=== PATIENT | male | born 1970 | race Caucasian/White ===

== ENCOUNTER 2019-10-08 02:50 | Emergency (ER) | payer BC ==
[2019-10-08] MEDS ORDERED: Sodium Chloride 0.9% 10 ML Syringe FLUSH PRN (03:11)
[2019-10-08] MEDS: Ketorolac 30 MG/ML SDV IVPUSH PRN (03:17)
[2019-10-08] MEDS: Ondansetron 4 MG/2 ML SDV IVPUSH PRN (03:45)
[2019-10-08] MEDS ORDERED: fentaNYL 100 MCG/2 ML SDV IVPUSH PRN (03:45)
[2019-10-08] MEDS: fentaNYL 250 MCG/5 ML SDV IVPUSH ONE ×2 (03:45→05:19)
--- NOTE | 2019-10-08 03:53 | EDM.PDOC ---
ED HPI GENERAL MEDICAL PROBLEM - General Chief Complaint: Abdominal Pain Stated Complaint: abd pain Time Seen by Provider: 10/08/19 03:15 Source of Information: Reports: Patient History Limitations: Reports: No Limitations - History of Present Illness INITIAL COMMENTS - FREE TEXT/NARRATIVE: this patient presents to the ED for evaluation of abdominal pain. He states the pain began about 6 hours ago while he was playing cards. He states the pain started out in the middle of his abdomen and has increased in intensity and now mid-abdomen and RLQ. He rates his pain "15/10" and presents doubled over. He denies vomiting or diarrhea but states he has no nausea. Denies fever. This patient has a history of hypertension and "takes 2 pills" but is unsure as to what they are. Onset: Today, Gradual Onset Date: 10/07/19 Onset Time: 18:00 Duration: Getting Worse Location: Reports: Abdomen - Related Data Allergies Allergy/AdvReac Type Severity Reaction Status Date / Time No Known Allergies Allergy Verified 10/08/19 03:23 ED ROS GENERAL - Review of Systems Review Of Systems: See Below Constitutional: Denies: Fever, Weakness HEENT: Reports: No Symptoms Respiratory: Reports: No Symptoms Cardiovascular: Reports: No Symptoms GI/Abdominal: Reports: Abdominal Pain. Denies: Anorexia, Diarrhea, Decreased Appetite, Distension, Nausea, Vomiting : Reports: No Symptoms Musculoskeletal: Reports: No Symptoms Skin: Reports: No Symptoms ED EXAM, GI/ABD - Physical Exam Exam: See Below Exam Limited By: Other (writhing in pain; accurate abdominal exam challenging) General Appearance: Alert, Severe Distress Eyes: Bilateral: Normal Appearance Ears: Normal External Exam Nose: Normal Inspection Throat/Mouth: Normal Inspection Head: Atraumatic, Normocephalic Neck: Normal Inspection, Supple, Full Range of Motion Respiratory/Chest: No Respiratory Distress, Lungs Clear, Normal Breath Sounds, No Accessory Muscle Use Cardiovascular: Regular Rate, Rhythm GI/Abdominal Exam: Normal Bowel Sounds. No: Soft, Non-Tender, No Organomegaly, No Distention Back Exam: Normal Inspection, Full Range of Motion. No: CVA Tenderness (R) Extremities: Normal Inspection, Normal Range of Motion Neurological: Alert, Oriented Skin Exam: Warm, Dry, Intact Course - Vital Signs Last Recorded V/S: Last Vital Signs Temp 36.8 C 10/08/19 02:55 Pulse 71 10/08/19 04:20 Resp 18 10/08/19 04:20 BP 167/105 H 10/08/19 04:20 Pulse Ox 100 10/08/19 04:20 - Orders/Labs/Meds Orders: Active Orders 24 hr Category Date Time Status Abdomen Pelvis w Cont [CT] Stat Exams 10/08/19 03:10 Taken Ketorolac [Toradol] Med 10/08/19 03:11 Active 30 mg IVPUSH Q6H PRN Ondansetron [Zofran] Med 10/08/19 03:45 Active 4 mg IVPUSH Q4H PRN Sodium Chloride 0.9% [Saline Flush] Med 10/08/19 03:11 Active 10 ml FLUSH ASDIRECTED PRN fentaNYL [Sublimaze] Med 10/08/19 03:45 Ordered 50 mcg IVPUSH Q5M PRN Saline Lock Insert [OM.PC] Routine Oth 10/08/19 03:11 Ordered Medication Orders Fentanyl (Sublimaze) 50 mcg IVPUSH Q5M PRN PRN Reason: Pain Ketorolac Tromethamine (Toradol) 30 mg IVPUSH Q6H PRN PRN Reason: Pain Stop: 10/13/19 03:11 Last Admin: 10/08/19 03:17 Dose: 30 mg Ondansetron HCl (Zofran) 4 mg IVPUSH Q4H PRN PRN Reason: Nausea/Vomiting Sodium Chloride (Saline Flush) 10 ml FLUSH ASDIRECTED PRN PRN Reason: Keep Vein Open Labs: Laboratory Tests 10/08/19 10/08/19 10/08/19 Range/Units 03:10 03:10 03:12 WBC 18.0 H (4.0-11.0) K/uL RBC 5.20 (4.50-6.50) M/uL Hgb 15.6 (13.0-18.0) g/dL Hct 45.2 (40.0-54.0) % MCV 87 (76-96) fL MCH 30.0 (27.0-32.0) pg MCHC 34.5 (31.0-35.0) g/dL RDW 13.2 (11.0-16.0) % Plt Count 370 (150-400) K/uL MPV 9.8 (6.0-10.0) fL Neut % (Auto) 81.6 H (45.0-70.0) % Lymph % (Auto) 12.1 L (20.0-40.0) % [place] % (Auto) 5.2 (3.0-10.0) % Eos % (Auto) 0.7 L (1.0-5.0) % Baso % (Auto) 0.4 (0.0-0.5) % Neut # (Auto) 14.66 H (2.00-7.50) K/uL Lymph # (Auto) 2.18 (1.50-4.00) K/uL [place] # (Auto) 0.93 H (0.20-0.80) K/uL Eos # (Auto) 0.12 (0.04-0.40) K/uL Baso # (Auto) 0.07 (0.02-0.10) K/uL Sodium 137 (136-145) mmol/L Potassium 4.0 (3.5-5.1) mmol/L Chloride 100 (98-107) mmol/L Carbon Dioxide 25.1 (21.0-32.0) mmol/L Anion Gap 15.9 H (5.0-15.0) mmol/L BUN 13 (8-26) mg/dL Creatinine 1.08 (0.70-1.30) mg/dL Est Cr Clr Drug Dosing 92.81 mL/min Estimated GFR (MDRD) > 60 (>60) MLS/MIN BUN/Creatinine Ratio 12.0 (6-25) Glucose 137 H (74-100) mg/dL Calcium 10.8 H (8.5-10.1) mg/dL Total Bilirubin 1.5 H (0.0-1.0) mg/dL AST 21 (15-37) U/L ALT 32 (12-78) U/L Alkaline Phosphatase 72 (46-116) U/L Total Protein 8.1 (6.4-8.2) g/dL Albumin 4.3 (3.4-5.0) g/dL Globulin 3.8 (2.2-4.2) g/dL Albumin/Globulin Ratio 1.1 (0.8-2.0) Urine Color Yellow Urine Appearance Clear (CLEAR) Urine pH 5.5 (5.0-8.0) Ur Specific [place] 1.025 (1.003-1.030) Urine Protein 30 H (NEGATIVE) mg/dL Urine Glucose (UA) Negative (NEGATIVE) mg/dL Urine Ketones Negative (NEGATIVE) mg/dL Urine Occult Blood Trace-lysed H (NEGATIVE) Urine Nitrite Negative (NEGATIVE) Urine Bilirubin Negative (NEGATIVE) Urine Urobilinogen 0.2 (0.2-1.0) E.U./dL Ur Leukocyte Esterase Negative (NEGATIVE) Urine RBC 0-5 H /HPF Urine WBC 0-5 H /HPF Ur Squamous Epith Cells Few /HPF Meds: Medications Generic Name Dose Route Start Last Admin Trade Name Freq PRN Reason Stop Dose Admin Fentanyl 50 mcg 10/08/19 03:45 Sublimaze IVPUSH Q5M PRN Pain Ketorolac Tromethamine 30 mg 10/08/19 03:11 10/08/19 03:17 Toradol IVPUSH 10/13/19 03:11 30 mg Q6H PRN Administration Pain Ondansetron HCl 4 mg 10/08/19 03:45 Zofran IVPUSH Q4H PRN Nausea/Vomiting Sodium Chloride 10 ml 10/08/19 03:11 Saline Flush FLUSH ASDIRECTED PRN Keep Vein Open - Re-Assessments/Exams Free Text/Narrative Re-Assessment/Exam: 10/08/19 04:29 This patient presents with abdominal pain and CT scan confirms appendicitis. There is no evidence of rupture or abscess at this time. Pain has been controlled with the above interventions in the ED. The case was discussed with Dr. Rosario who has accepted the patient in transfer. Parenteral antibiotics have been ordered and given and the patient was hemodynamically stable at the time of transfer. Questions were answered. Arrangements were made for S ground transfer to [facility]. The patient was stable at the time of transfer. 10/08/19 04:51 Departure - Departure Time of Disposition: 05:15 Disposition: 20 Condition: Fair Clinical Impression: Acute appendicitis - Discharge Information *PRESCRIPTION DRUG MONITORING PROGRAM REVIEWED*: No Instructions: Appendicitis, Adult Referrals: PCP,None [Primary Care Provider] - Forms: ED Department Discharge, ED Return to Work/School Form Sepsis Event Note - Evaluation Sepsis Screening Result: No Definite Risk - Focused Exam Vital Signs: Vital Signs Temp Pulse Resp BP Pulse Ox 10/08/19 04:20 71 18 167/105 H 100 10/08/19 02:55 36.8 C 98 18 198/131 H 100 Date Exam was Performed: 10/08/19 Time Exam was Performed: 04:28 - My Orders Last 24 Hours: My Active Orders 10/08/19 03:10 Abdomen Pelvis w Cont [CT] Stat 10/08/19 03:11 Ketorolac [Toradol] 30 mg IVPUSH Q6H PRN Sodium Chloride 0.9% [Saline Flush] 10 ml FLUSH ASDIRECTED PRN Saline Lock Insert [OM.PC] Routine 10/08/19 03:45 Ondansetron [Zofran] 4 mg IVPUSH Q4H PRN fentaNYL [Sublimaze] 50 mcg IVPUSH Q5M PRN - Assessment/Plan Last 24 Hours: My Active Orders 10/08/19 03:10 Abdomen Pelvis w Cont [CT] Stat 10/08/19 03:11 Ketorolac [Toradol] 30 mg IVPUSH Q6H PRN Sodium Chloride 0.9% [Saline Flush] 10 ml FLUSH ASDIRECTED PRN Saline Lock Insert [OM.PC] Routine 10/08/19 03:45 Ondansetron [Zofran] 4 mg IVPUSH Q4H PRN fentaNYL [Sublimaze] 50 mcg IVPUSH Q5M PRN
[2019-10-08] MEDS: Sodium Chloride 0.9% 1,000 ML IV SCH (04:45)
[2019-10-08] MEDS: Piperacillin/Tazobactam 4.5 GM in Sodium Chloride 0.9% 100 ML IV ONE (04:56)
--- NOTE | 2019-10-09 13:46 | CT ---
DATE OF SERVICE: 10/08/19 CLINICAL DATA: abdominal pain ENHANCED ABDOMEN AND PELVIC CT: Multislice acquisition through the abdomen and pelvis with IV, but without oral contrast was performed. No priors. The lung bases are clear. There is a small hiatal hernia. There is mild diffuse fatty infiltration of the liver. No focal hepatic lesions. No gallbladder appears normal. No gallstones. No pericholecystic fluid. The spleen appears normal size. There are multiple calcifications within the spleen consistent with prior granulomatous disease. The pancreas appears normal. The right and left adrenals appear normal. The right and left kidneys enhance symmetrically. No hydronephrosis or hydroureter. There is a small amount of fluid within the bladder. It appears normal. The prostate is mildly enlarged. The appendix is abnormal. It is dilated and measures 15 mm in outside diameter. There is also periappendiceal fat stranding. The findings are consistent with appendicitis. No evidence of periappendiceal abscess. No free air. No free fluid. No dilated loops of bowel. No adenopathy. No aortic aneurysm. There is an umbilical hernia containing fat. There are small bilateral inguinal hernias containing fat. IMPRESSION: 1. Findings consistent with appendicitis. 2. The patient's physician was notified of the findings by telephone and by virtual radiologic preliminary radiology report. [id number] [facility]
== END 2019-10-08 05:31 ==
LOC: LB.ED 02:50
DX: K35.80 Unspecified acute appendicitis (principal); I10 Essential (primary) hypertension
CPT/HCPCS: 36415; 74177; 80053; 81001; 85025; 96365; 96375; 96376; 99284; 99285-25; A0425; A0429; J1885; J2405; J2543; J3010; J7030; J7050